=== PATIENT | female | born 1930 | race Caucasian/White ===

== ENCOUNTER 2016-05-24 11:17 | Emergency (ER) | payer OTHER ==
[~2016-05-24] VITALS: Ht 160 cm; Wt 63.5 kg
[~2016-05-24 11:17] MED LIST: ADULT SUPPOSIT1 EACH RECTAL; ASA5UEC PO; ASPIR 8181 MG PO; BACTRIM DS TAB1 EACH PO; BISACODYL SUPP10 MG RECTAL; CLARITIN10 MG PO; FLOMAX0.4 MG PO; HYDRALAZINE 2525 MG PO; IBUPROFEN 200200 M1 PO; LEVOTHYROXINE0.05 MG PO; MELATONIN3 MG PO; MIRALAX17 GM PO; NORVASC 5 MG TAB5 MG PO; NORVASC5 MG PO; PROBIOTIC1 EAC1 PO; SYNTHROID100 MCG PO; TYLENOL325 MG PO; VIACTIV SOFT C1 EACH PO; ZOLOFT25 MG PO
[2016-05-24 13:44] LABS: BASOPHILS 0.6 % (0.0-2.0); EOSINOPHILS 1.2 % (0.0-3.0); HEMATOCRIT 39.9 % (37.0-47.0); HEMOGLOBIN 13.7 gm/dL (12.0-15.0); LYMPHOCYTES 11.1 % (24.0-44.0); MCH 30.9 pg (26.0-34.0); MCHC 34.3 % (28.0-37.0); MCV 89.9 fL (80.0-100.0); MONOCYTES 7.7 % (1.0-8.0); PLATELET COUNT 242 thou/uL (150-400); POLYS 79.4 % (36.0-66.0); RBC 4.44 mil/uL (4.20-5.00); RDW 14.7 % (10.5-14.5); WBC 8.9 thou/uL (4.0-11.0)
[2016-05-24 13:46] LABS: CREATININE 0.9 mg/dL (0.6-1.3); POTASSIUM 4.3 mmol/L (3.5-5.1)
[2016-05-24 13:51] LABS: ALBUMIN 3.2 g/dL (3.4-5.0); TOTAL BILIRUBIN 0.4 mg/dL (<0.1-1.0); TOTAL PROTEIN 7.7 g/dL (6.4-8.2)
[2016-05-24 13:52] LABS: MANUAL DIFF NO
[2016-05-24 14:08] LABS: URINE BILIRUBIN NEGATIVE (Negative); URINE BLOOD 3+ (Negative); URINE COLOR YELLOW; URINE GLUCOSE-RANDOM* NEGATIVE (Negative); URINE KETONES NEGATIVE (Negative); URINE NITRITE POSITIVE (Negative); URINE PROTEIN (DIPSTICK) TRACE (Negative); URINE SPECIFIC GRAVITY 1.015 (1.003-1.035); URINE UROBILINOGEN 0.2 E.U./dl (0.2-1.0)
[2016-05-24 14:15] LABS: CASTS None Seen /LPF (None Seen); CRYSTALS None Seen /LPF (None Seen); SQUAMOUS None Seen /LPF (0-3)
[2016-05-24 14:16] LABS: BACTERIA 1-9 Few /HPF (None Seen); URINE WBC 0-5 Rare /HPF (0-5)
[2016-05-24] MEDS ORDERED: KEFLEX500 MG PO (14:34)
== END 2016-05-24 15:20 | disposition home or self-care (01) ==
LOC: ER 11:17
PROVIDERS: Emergency Medicine; Nurse Practitioner
DX: T83.098A Other mechanical complication of other urinary catheter, initial encounter (principal); N39.0 Urinary tract infection, site not specified; Z90.710 Acquired absence of both cervix and uterus; F03.90 Unspecified dementia, unspecified severity, without behavioral disturbance, psychotic disturbance, mood disturbance, and anxiety; E03.9 Hypothyroidism, unspecified; F32.9 Major depressive disorder, single episode, unspecified; I10 Essential (primary) hypertension; Z88.6 Allergy status to analgesic agent; Z88.1 Allergy status to other antibiotic agents; Z88.8 Allergy status to other drugs, medicaments and biological substances; X58.XXXA Exposure to other specified factors, initial encounter; Y93.89 Activity, other specified; Y92.89 Other specified places as the place of occurrence of the external cause; Y99.8 Other external cause status

== ENCOUNTER → 2016-12-24 | Outpatient (CLI) | payer OTHER ==
[~2016-12-24] MED LIST changes: +KEFLEX500 MG PO
== END ==
LOC: RAD 14:22
DX: M25.511 Pain in right shoulder (principal); M79.601 Pain in right arm

== ENCOUNTER → 2017-07-30 | Outpatient (CLI) | payer OTHER | LOC: RAD 14:44 | DX: J06.9 Acute upper respiratory infection, unspecified (principal); R06.02 Shortness of breath ==